=== PATIENT | female | born 1995 | race African-American/Black ===

== ENCOUNTER 2017-09-14 02:04 | Emergency (ER) | payer OTHER, SELFPAY ==
[2017-09-14] MEDS ORDERED: Dexamethasone 10 MG/ML VIAL ONE (03:51)
[2017-09-14] MEDS ORDERED: Ibuprofen 800 MG TAB ONE (03:51)
[2017-09-14] MEDS ORDERED: Dexamethasone 4 MG TAB ONE (03:52)
== END 2017-09-14 04:01 | disposition home or self-care (01) ==
LOC: ERS 02:04
DX: J02.9 Acute pharyngitis, unspecified (principal); M54.9 Dorsalgia, unspecified; F41.9 Anxiety disorder, unspecified; F32.9 Major depressive disorder, single episode, unspecified; Z79.891 Long term (current) use of opiate analgesic
CPT/HCPCS: 87081; 87430; 99283; J1100; J8540

== ENCOUNTER 2017-11-16 10:03 | Emergency (ER) | payer OTHER, SELFPAY ==
[2017-11-16 12:15] LABS: Bilirubin Negative (Negative); Blood, Urine Negative (Negative); Clarity CLOUDY (Clear); Glucose, Urine (Dipstick) Negative (Negative); Leukocyte Small (Negative); Nitrite Negative (Negative); Protein, Urine (Dipstick) 30 mg/dL (Neg-Trace); Specific Gravity, Urine 1.043 (1.002-1.036); Urobilinogen 0.2 mg/dL (0.2-1.0); pH, Urine 7.5 (5.0-9.0)
[2017-11-16 12:17] LABS: Bacteria/HPF 3+ HPF (None Seen); Squamous Epithelial 21-50 HPF (0-3); WBC/HPF 21-50 HPF (0-3)
--- NOTE | 2017-11-16 12:19 | RAD ---
LUMBOSACRAL SPINE THREE VIEWS: COMPARISON: Chronic low back pain. FINDINGS: Three views of the lumbosacral spine show normal height and alignment of the vertebral bodies and int ervertebral disks without fracture or subluxation. No degenerative changes are seen. IMPRESSION: Unremarkable exam. POS: [facility]
[2017-11-16 12:22] LABS: Pathc Cast-AUWi Flag 3.48 (0-2.49)
[2017-11-16 12:23] LABS: Pregnancy Test - Urine (BHCG) Negative (Negative); Pregu Control Background? CLEAR/WHITE (CLR/WHITE); Pregu Control Bar Appear? YES (CONTROL BAR); Specific Gravity 1.043 (1.002-1.036)
[2017-11-16 12:37] LABS: Hyaline Casts/LPF NONE SEEN LPF (0-3 Hyaline); RBC/HPF 0-3 HPF (0-3)
[2017-11-16 12:38] LABS: Manual Microscopic Reviewed? No Path Casts Seen
[2017-11-16] MEDS ORDERED: Ketorolac Tromethamine 60 MG/2 ML VIAL ONE (12:43)
== END 2017-11-16 13:21 | disposition home or self-care (01) ==
LOC: ERS 10:03
DX: N39.0 Urinary tract infection, site not specified (principal); M54.5 Low back pain; G89.29 Other chronic pain; F41.9 Anxiety disorder, unspecified; F32.9 Major depressive disorder, single episode, unspecified
CPT/HCPCS: 72100; 81003; 81015; 81025; 87086; 96372; J1885